=== PATIENT | female | born 1955 | race Caucasian/White ===

== ENCOUNTER → 2016-10-11 | Outpatient (CLI) | payer MEDICARE ==
[~2016-10-11] MED LIST: ALPHAMIN1000 MCG/M IM; ASPIRIN E.C. 8181 MG PO; DECARA PO; DESYREL 100MG100 MG PO; EFFEXOR100 MG PO; FOLIC ACID 11 MG/TA1 PO; LASIX 20MG TABL20 MG PO; LASIX 40MG TABL40 MG PO; NITROSTAT0.4 MG/TAB SL; NORCO 325 MG-51 TAB PO; PLETAL50 MG PO; ROXICODONE 55 MG/TAB PO; VIIBRYD10 MG PO; VITAMIN B11000 MCG/M IM; VITAMIN D1000 IU PO; VITAMIN D32000 IU PO; VITAMINC1000TA PO; XANAX .25M0.25 MG/TA PO
== END ==
LOC: COL.VAS 09:20
DX: I73.9 Peripheral vascular disease, unspecified (principal); I25.10 Atherosclerotic heart disease of native coronary artery without angina pectoris

== ENCOUNTER 2016-11-30 17:43 | Inpatient (IN) | payer MEDICARE ==
[~2016-11-30] VITALS: Ht 177.8 cm; Wt 67.2 kg
[~2016-11-30 17:43] MED LIST changes: -ASPIRIN E.C. 8181 MG PO; -NITROSTAT0.4 MG/TAB SL; -PLETAL50 MG PO
[2016-11-30] MEDS ORDERED: PLETAL50 MG PO (18:52)
[2016-11-30] MEDS ORDERED: NITROSTAT0.4 MG/TAB SL (18:53)
[2016-11-30] MEDS ORDERED: ASPIRIN E.C. 8181 MG PO (18:53)
[2016-11-30 19:29] VITALS: BP 112/57; PULSE 76; TEMP 98.7
[2016-11-30 20:34] LABS: MEAN CELL VOLUME 72 fl (80.0-100.0); MEAN CORPUSCULAR HGB CONC 27 g/dl (33.0-37.0); MEAN PLATELET VOLUME 9.9 fl (7.4-10.4); PLATELET COUNT 173 K/mm3 (130-400); RED BLOOD COUNT 3.27 M/mm3 (4.10-5.30); REDCELL DISTRIBUTION WIDTH-CV 19.1 % (11.5-14.5); WHITE BLOOD COUNT 3.6 K/mm3 (4.8-10.8)
[2016-11-30 20:35] LABS: HEMATOCRIT 23.6 % (37.0-47.0); MEAN CORPUSCULAR HEMOGLOBIN 20 pg (27.0-31.0)
[2016-11-30 20:36] LABS: HEMOGLOBIN 6.4 g/dl (12.5-16.0)
[2016-11-30 20:43] LABS: CALCIUM 9.4 mg/dL (8.4-10.2); MAGNESIUM 2.3 mg/dL (1.6-2.3); PHOSPHOROUS 4.8 mg/dL (2.5-4.5)
[2016-11-30 21:14] LABS: THYROID STIMULATING HORMONE 2.02 uIU/mL (0.465-4.680)
[2016-11-30 23:25] VITALS: BP 119/57; PULSE 64; TEMP 98.3
[2016-11-30 23:49] VITALS: BP 114/58; PULSE 66; TEMP 98
[2016-12-01] VITALS (17 sets, daily range): BP systolic 109–135; BP diastolic 53–73; PULSE 53–82; TEMP 97.5–99
[2016-12-01 10:55] LABS: MEAN CELL VOLUME 74 fl (80.0-100.0); MEAN CORPUSCULAR HGB CONC 29 g/dl (33.0-37.0); MEAN PLATELET VOLUME 9.9 fl (7.4-10.4); PLATELET COUNT 157 K/mm3 (130-400); RED BLOOD COUNT 3.21 M/mm3 (4.10-5.30); REDCELL DISTRIBUTION WIDTH-CV 19.2 % (11.5-14.5); WHITE BLOOD COUNT 2.7 K/mm3 (4.8-10.8)
[2016-12-01 11:00] LABS: HEMATOCRIT 23.7 % (37.0-47.0); HEMOGLOBIN 6.8 g/dl (12.5-16.0); MEAN CORPUSCULAR HEMOGLOBIN 21 pg (27.0-31.0)
[2016-12-01 11:22] LABS: ADJUSTED CALCIUM 9.4 mg/dL (8.4-10.2); ALBUMIN 3.5 gm/dL (3.5-5.0); BILIRUBIN,TOTAL 0.7 mg/dL (0.0-1.0); CREATININE, serum 0.78 mg/dL (0.52-1.25); POTASSIUM 3.4 mmol/L (3.4-5.0)
[2016-12-01 14:57] LABS: ADD PATHOLOGY DIFF REVIEW NO
[2016-12-01 15:50] LABS: BAND 16 % (0-10); NEUTROPHILS 70 % (42.0-75.2); PLATELET ESTIMATE NORMAL (NORMAL)
[2016-12-01 16:04] LABS: HYPOCHROMIA 2+
[2016-12-01 16:05] LABS: ANISOCYTOSIS 1+
[2016-12-01 16:13] LABS: TOTAL CELLS COUNTED 50
[2016-12-02] VITALS (10 sets, daily range): BP systolic 108–139; BP diastolic 50–82; PULSE 55–87; TEMP 98–98.8
[2016-12-02 02:47] LABS: MEAN CELL VOLUME 76 fl (80.0-100.0); MEAN CORPUSCULAR HGB CONC 30 g/dl (33.0-37.0); MEAN PLATELET VOLUME 10.1 fl (7.4-10.4); PLATELET COUNT 143 K/mm3 (130-400); RED BLOOD COUNT 3.76 M/mm3 (4.10-5.30); WHITE BLOOD COUNT 3.6 K/mm3 (4.8-10.8)
[2016-12-02 02:57] LABS: HEMATOCRIT 28.5 % (37.0-47.0); HEMOGLOBIN 8.6 g/dl (12.5-16.0); MEAN CORPUSCULAR HEMOGLOBIN 23 pg (27.0-31.0)
[2016-12-02 10:56] LABS: HEMOGLOBIN 9.3 g/dl (12.5-16.0)
== END 2016-12-02 12:15 | disposition home or self-care (01) | DRG 378 ==
LOC: MEDICAL 17:43
PROVIDERS: Internal Medicine Gastroenterology; Internal Medicine Interventional Cardiology
PROC: 0DJ08ZZ Inspection of Upper Intestinal Tract, Via Natural or Artificial Opening Endoscopic (ICD-10-PCS; principal; 2016-12-01 10:45)
PROC: 0DJD8ZZ Inspection of Lower Intestinal Tract, Via Natural or Artificial Opening Endoscopic (ICD-10-PCS; 2016-12-01 10:45)
DX: K92.1 Melena (principal); D61.818 Other pancytopenia; K74.3 Primary biliary cirrhosis; D50.0 Iron deficiency anemia secondary to blood loss (chronic); K57.30 Diverticulosis of large intestine without perforation or abscess without bleeding; I25.10 Atherosclerotic heart disease of native coronary artery without angina pectoris; I10 Essential (primary) hypertension; Z95.0 Presence of cardiac pacemaker; Z98.84 Bariatric surgery status; F17.210 Nicotine dependence, cigarettes, uncomplicated; I73.9 Peripheral vascular disease, unspecified
CPT/HCPCS: J2250; J3010; J7030; P9016

== ENCOUNTER → 2016-11-30 | Outpatient (CLI) | payer MEDICARE ==
[2016-11-30 12:47] LABS: BASO % 0.3 % (0.0-2.0); EOS # 0.1 (0.0-0.7); EOS % 1.7 % (0-4.0); GRAN # 2.6 (1.4-6.5); GRAN % 73.8 % (42.2-75.2); LYMPH # 0.5 (1.2-3.4); LYMPH % 15.3 % (20.0-51.0); MEAN CELL VOLUME 73 fl (80.0-100.0); MEAN CORPUSCULAR HGB CONC 27 g/dl (33.0-37.0); MEAN PLATELET VOLUME 9.7 fl (7.4-10.4); MONO # 0.3 (0.1-0.6); MONO % 8.6 % (1.7-9.3); PLATELET COUNT 183 K/mm3 (130-400); RED BLOOD COUNT 3.47 M/mm3 (4.10-5.30); REDCELL DISTRIBUTION WIDTH-CV 19.4 % (11.5-14.5); WHITE BLOOD COUNT 3.5 K/mm3 (4.8-10.8)
[2016-11-30 12:59] LABS: CALCIUM 9.6 mg/dL (8.4-10.2); CREATININE, serum 0.87 mg/dL (0.52-1.25); POTASSIUM 3.6 mmol/L (3.4-5.0)
[2016-11-30 13:06] LABS: HEMATOCRIT 25.2 % (37.0-47.0); HEMOGLOBIN 6.9 g/dl (12.5-16.0); MEAN CORPUSCULAR HEMOGLOBIN 20 pg (27.0-31.0)
== END ==
LOC: COL.LAB 12:11
PROVIDERS: Internal Medicine Interventional Cardiology
DX: I70.213 Atherosclerosis of native arteries of extremities with intermittent claudication, bilateral legs (principal); I65.22 Occlusion and stenosis of left carotid artery; R16.0 Hepatomegaly, not elsewhere classified

== ENCOUNTER 2016-12-08 18:56 | Emergency (ER) | payer MEDICARE ==
[~2016-12-08] VITALS: Ht 177.8 cm; Wt 62.3 kg
[~2016-12-08 18:56] MED LIST changes: +ASPIRIN E.C. 8181 MG PO; +NITROSTAT0.4 MG/TAB SL; +PLETAL50 MG PO
[2016-12-08 19:02] VITALS: BP 122/71; TEMP 96.8
[2016-12-08 19:43] LABS: ADD PATHOLOGY DIFF REVIEW NO
[2016-12-08 19:49] LABS: MEAN CELL VOLUME 78 fl (80.0-100.0); MEAN CORPUSCULAR HGB CONC 30 g/dl (33.0-37.0); MEAN PLATELET VOLUME 9.7 fl (7.4-10.4); PLATELET COUNT 157 K/mm3 (130-400); RED BLOOD COUNT 4.54 M/mm3 (4.10-5.30); REDCELL DISTRIBUTION WIDTH-CV 21.3 % (11.5-14.5); RETIC % 1.1 % (0.5-3.52); WHITE BLOOD COUNT 5.1 K/mm3 (4.8-10.8)
[2016-12-08 19:51] LABS: HEMATOCRIT 35.6 % (37.0-47.0); HEMOGLOBIN 10.8 g/dl (12.5-16.0); MEAN CORPUSCULAR HEMOGLOBIN 24 pg (27.0-31.0)
[2016-12-08 20:11] LABS: ALANINE AMINOTRANSFERASE 24 U/L (9-52); ALBUMIN 4.2 gm/dL (3.5-5.0); ALKALINE PHOSPHATASE 84 U/L (50-136); ANION GAP 9 mmol/L (7-16); BILIRUBIN,TOTAL 0.7 mg/dL (0.0-1.0); BLOOD UREA NITROGEN 16 mg/dL (7-17); CALCIUM 9.2 mg/dL (8.4-10.2); CARBON DIOXIDE 28 mmol/L (22-30); CHLORIDE 101 mmol/L (98-107); GLUCOSE 72 mg/dL (74-106); POTASSIUM 3.6 mmol/L (3.4-5.0); SODIUM 138 mmol/L (137-145); TOTAL PROTEIN 7.2 gm/dL (6.4-8.2)
[2016-12-08 20:12] LABS: C-REACTIVE PROTEIN < 0.5 mg/dL (0.0-0.9)
[2016-12-08 20:13] LABS: ANISOCYTOSIS 2+; HYPOCHROMIA 1+; MICROCYTOSIS 1+; NEUTROPHILS 72 % (42.0-75.2); PLATELET ESTIMATE NORMAL (NORMAL); TOTAL CELLS COUNTED 100
[2016-12-08 20:20] LABS: PH 6 (5-8); SQUAMOUS EPITHELIAL 0-2 /hpf; URINE APPEARANCE Clear; URINE BACTERIA None Seen /hpf; URINE BILIRUBIN Negative (NEGATIVE); URINE BLOOD 1+ (NEGATIVE); URINE COLOR Yellow; URINE GLUCOSE Negative (NEGATIVE); URINE KETONE Negative (NEGATIVE); URINE RBC 0-2 /hpf; URINE WBC 0-2 /hpf
[2016-12-08 21:07] VITALS: PULSE 73
== END 2016-12-08 21:07 | disposition home or self-care (01) ==
LOC: COL.ER 18:56
PROVIDERS: Family Medicine
DX: D64.9 Anemia, unspecified (principal); I25.10 Atherosclerotic heart disease of native coronary artery without angina pectoris; Z95.0 Presence of cardiac pacemaker; Z79.82 Long term (current) use of aspirin

== ENCOUNTER → 2016-12-28 | Outpatient (CLI) | payer MEDICARE | LOC: COL.RAD 11:30 | DX: I65.23 Occlusion and stenosis of bilateral carotid arteries (principal) | CPT/HCPCS: Q9967 ==

== ENCOUNTER → 2017-01-05 | Outpatient (CLI) | payer MEDICARE ==
[2017-01-05 14:18] LABS: MEAN CELL VOLUME 84 fl (80.0-100.0); MEAN CORPUSCULAR HGB CONC 31 g/dl (33.0-37.0); MEAN PLATELET VOLUME 9.7 fl (7.4-10.4); PLATELET COUNT 157 K/mm3 (130-400); RED BLOOD COUNT 4.28 M/mm3 (4.10-5.30); REDCELL DISTRIBUTION WIDTH-CV 20.4 % (11.5-14.5)
[2017-01-05 14:20] LABS: HEMATOCRIT 36.1 % (37.0-47.0); HEMOGLOBIN 11.1 g/dl (12.5-16.0); MEAN CORPUSCULAR HEMOGLOBIN 26 pg (27.0-31.0)
[2017-01-05 14:34] LABS: CREATININE, serum 0.74 mg/dL (0.52-1.25); POTASSIUM 3.6 mmol/L (3.4-5.0)
[2017-01-05 14:53] LABS: CALCIUM 9.3 mg/dL (8.4-10.2)
== END ==
LOC: COL.LAB 13:44
PROVIDERS: Internal Medicine Interventional Cardiology
DX: I70.213 Atherosclerosis of native arteries of extremities with intermittent claudication, bilateral legs (principal); I65.22 Occlusion and stenosis of left carotid artery; R16.0 Hepatomegaly, not elsewhere classified

== ENCOUNTER 2018-01-15 00:12 | Observation (INO) | payer MEDICARE ==
[2018-01-15] VITALS (11 sets, daily range): BP systolic 109–135; BP diastolic 56–75; PULSE 54–74; TEMP 97.1–98.2
[~2018-01-15] VITALS: Ht 180.3 cm; Wt 70.9 kg
[~2018-01-15 00:12] MED LIST changes: +EFFEXOR-XR150 MG PO; -EFFEXOR100 MG PO
[2018-01-15 01:11] LABS: MAGNESIUM 2.2 mg/dL (1.6-2.3)
[2018-01-15 01:28] LABS: TROPONIN-I < 0.012 ng/mL (0.000-0.034)
[2018-01-15] MEDS ORDERED: PLAVIX 75MG TAB75 MG PO (02:35)
[2018-01-15] MEDS ORDERED: PRINIVIL20 MG PO (02:37)
[2018-01-15] MEDS ORDERED: PREDNISONE20 MG (02:38)
[2018-01-15] MEDS ORDERED: EFFEXOR-XR150 MG (02:38)
[2018-01-15] MEDS ORDERED: VALIUM 5MG T5 MG/TAB (02:38)
[2018-01-15] MEDS ORDERED: CLEOCIN HC150 MG/CAP (02:38)
[2018-01-15 07:26] LABS: BASO % 0.4 % (0.0-2.0); EOS # 0.1 (0.0-0.7); EOS % 3.2 % (0-4.0); GRAN # 1.2 (1.4-6.5); GRAN % 49.2 % (42.2-75.2); HEMOGLOBIN 10.3 g/dl (12.5-16.0); LYMPH # 0.9 (1.2-3.4); LYMPH % 36.1 % (20.0-51.0); MEAN CELL VOLUME 92 fl (80.0-100.0); MEAN CORPUSCULAR HEMOGLOBIN 29 pg (27.0-31.0); MEAN CORPUSCULAR HGB CONC 32 g/dl (33.0-37.0); MEAN PLATELET VOLUME 10.6 fl (7.4-10.4); MONO # 0.3 (0.1-0.6); MONO % 10.7 % (1.7-9.3); PLATELET COUNT 133 K/mm3 (130-400); RED BLOOD COUNT 3.53 M/mm3 (4.10-5.30); REDCELL DISTRIBUTION WIDTH-CV 13.6 % (11.5-14.5)
[2018-01-15 07:31] LABS: HEMATOCRIT 32.3 % (37.0-47.0)
[2018-01-15 07:36] LABS: ALBUMIN 3.5 gm/dL (3.5-5.0); BILIRUBIN,TOTAL 0.5 mg/dL (0.0-1.0); CALCIUM 8.9 mg/dL (8.4-10.2); CHOLESTEROL RISK RATIO 3.7; CREATININE, serum 0.89 mg/dL (0.52-1.25); POTASSIUM 3.5 mmol/L (3.4-5.0); TOTAL PROTEIN 6.4 gm/dL (6.4-8.2)
[2018-01-16 00:40] VITALS: BP 123/61; PULSE 56; TEMP 98.7
[2018-01-16 07:58] VITALS: BP 123/70; PULSE 77; TEMP 98.7
[2018-01-16] MEDS ORDERED: LIPITOR 80MG80 MG PO (11:31)
[2018-01-16 11:47] VITALS: BP 122/63; PULSE 58; TEMP 98.4
== END 2018-01-16 14:49 | disposition short-term general hospital (02) ==
LOC: MEDICAL 00:12
PROVIDERS: Nurse Practitioner Family
DX: I25.110 Atherosclerotic heart disease of native coronary artery with unstable angina pectoris (principal); I10 Essential (primary) hypertension; I73.9 Peripheral vascular disease, unspecified; F17.210 Nicotine dependence, cigarettes, uncomplicated; D64.9 Anemia, unspecified; F41.9 Anxiety disorder, unspecified; F32.9 Major depressive disorder, single episode, unspecified; I07.1 Rheumatic tricuspid insufficiency; Z95.0 Presence of cardiac pacemaker; Z98.84 Bariatric surgery status; Z90.710 Acquired absence of both cervix and uterus; Z79.82 Long term (current) use of aspirin; Z88.0 Allergy status to penicillin; Z88.1 Allergy status to other antibiotic agents; Z88.8 Allergy status to other drugs, medicaments and biological substances; Z85.828 Personal history of other malignant neoplasm of skin; Z82.49 Family history of ischemic heart disease and other diseases of the circulatory system
CPT/HCPCS: C1769; G0008; G0378; G0379; J1644; J1650; J2250; J3010; J7030; Q9967

== ENCOUNTER 2018-04-18 09:12 | Day surgery (SDC) | payer MEDICARE ==
[2018-04-18] VITALS (9 sets, daily range): BP systolic 125–153; BP diastolic 77–88; PULSE 60–68; TEMP 98
[~2018-04-18] VITALS: Ht 177.8 cm; Wt 70.8 kg
[~2018-04-18 09:12] MED LIST changes: +CLEOCIN HC150 MG/CAP; +EFFEXOR-XR150 MG; +LIPITOR 80MG80 MG PO; +PLAVIX 75MG TAB75 MG PO; +PREDNISONE20 MG; +PRINIVIL20 MG PO; +VALIUM 5MG T5 MG/TAB
[2018-04-18] MEDS ORDERED: LIPITOR 40MG TA40 MG PO (09:26)
[2018-04-18 11:18] LABS: PROTHROMBIN TIME 11.6 SECONDS (9.7-12.8)
[2018-04-18 11:21] LABS: CREATININE, serum 0.8 mg/dL (0.52-1.25); POTASSIUM 3.9 mmol/L (3.4-5.0)
[2018-04-18 11:25] LABS: MEAN CELL VOLUME 86 fl (80.0-100.0); MEAN CORPUSCULAR HGB CONC 30 g/dl (33.0-37.0); MEAN PLATELET VOLUME 10.3 fl (7.4-10.4); PLATELET COUNT 168 K/mm3 (130-400); RED BLOOD COUNT 3.74 M/mm3 (4.10-5.30); REDCELL DISTRIBUTION WIDTH-CV 14.8 % (11.5-14.5)
[2018-04-18 11:26] LABS: HEMOGLOBIN 9.5 g/dl (12.5-16.0); MEAN CORPUSCULAR HEMOGLOBIN 25 pg (27.0-31.0)
== END 2018-04-18 15:00 | disposition home or self-care (01) ==
LOC: COL.CAR 09:12
PROVIDERS: Internal Medicine Interventional Cardiology
DX: Z45.010 Encounter for checking and testing of cardiac pacemaker pulse generator [battery] (principal); I70.213 Atherosclerosis of native arteries of extremities with intermittent claudication, bilateral legs; F17.210 Nicotine dependence, cigarettes, uncomplicated; Z91.041 Radiographic dye allergy status; Z88.0 Allergy status to penicillin; Z88.6 Allergy status to analgesic agent; Z88.5 Allergy status to narcotic agent; Z88.4 Allergy status to anesthetic agent; Z91.018 Allergy to other foods; Z79.82 Long term (current) use of aspirin; Z79.02 Long term (current) use of antithrombotics/antiplatelets; Z79.52 Long term (current) use of systemic steroids; Z96.643 Presence of artificial hip joint, bilateral; Z95.5 Presence of coronary angioplasty implant and graft; Z82.49 Family history of ischemic heart disease and other diseases of the circulatory system; Z83.3 Family history of diabetes mellitus; Z80.9 Family history of malignant neoplasm, unspecified
CPT/HCPCS: J2250; J3010; J3370; J7030; J7050

== ENCOUNTER 2019-05-16 10:03 | Day surgery (SDC) | payer MEDICARE ==
[~2019-05-16] VITALS: Ht 177.8 cm; Wt 57.4 kg
[2019-05-16] VITALS (11 sets, daily range): BP systolic 110–136; BP diastolic 62–77; PULSE 59–64; TEMP 97.3
[~2019-05-16 10:03] MED LIST changes: +LIPITOR 40MG TA40 MG PO
[2019-05-16 10:42] LABS: MEAN CELL VOLUME 85 fl (80.0-100.0); MEAN CORPUSCULAR HEMOGLOBIN 25 pg (27.0-31.0); MEAN CORPUSCULAR HGB CONC 30 g/dl (33.0-37.0); MEAN PLATELET VOLUME 10.4 fl (7.4-10.4); PLATELET COUNT 191 K/mm3 (130-400); RED BLOOD COUNT 3.95 M/mm3 (4.10-5.30); REDCELL DISTRIBUTION WIDTH-CV 14.4 % (11.5-14.5)
[2019-05-16 10:43] LABS: HEMATOCRIT 33.6 % (37.0-47.0)
[2019-05-16 10:47] LABS: PROTHROMBIN TIME 11.4 SECONDS (9.7-12.8)
[2019-05-16] MEDS ORDERED: ASPIRIN E.C. 8181 MG PO (10:47)
[2019-05-16] MEDS ORDERED: PLETAL50 MG PO (10:49)
[2019-05-16 10:50] LABS: PARTIAL THROMBOPLASTIN TIME 29.5 SECONDS (26.0-37.0)
[2019-05-16] MEDS ORDERED: TOPROL XL 25MG25 MG PO (10:50)
[2019-05-16] MEDS ORDERED: PREDNISONE20 MG PO (10:51)
[2019-05-16 10:58] LABS: CALCIUM 9.4 mg/dL (8.4-10.2); CREATININE, serum 0.82 (0.52-1.25); POTASSIUM 4.1 mmol/L (3.4-5.0)
--- NOTE | 2019-05-16 13:14 | NUR ---
SEE MERGE DOCUMENTATION FOR MEDICATION ADMINISTRATION TIMES AND INTRA/POST PROCEDURE SEDATION ASSESSMENTS. PLAN FOR R GROIN ACCESS, BILATERAL GROINS PREPPED.
--- NOTE | 2019-05-16 14:06 | NUR ---
Back from [employer]. Alert and oriented, denies pain and needs at this time. VSS. Right groin site CD&I, soft to palpation with strong pedal pulses noted. Daughter bedside
--- NOTE | 2019-05-16 17:27 | NUR ---
Ambulated in room to use toilet. Right groin site soft to palpation and CD&I. INT discontinued intact.
--- NOTE | 2019-05-16 17:40 | NUR ---
Discharge instructions given. Transferred to private car by j luis
== END 2019-05-16 17:45 | disposition home or self-care (01) ==
LOC: COL.CAR 10:03
PROVIDERS: Internal Medicine Interventional Cardiology
DX: I25.118 Atherosclerotic heart disease of native coronary artery with other forms of angina pectoris (principal); I73.9 Peripheral vascular disease, unspecified; M79.605 Pain in left leg; M79.604 Pain in right leg; F17.210 Nicotine dependence, cigarettes, uncomplicated; Z96.643 Presence of artificial hip joint, bilateral; Z82.49 Family history of ischemic heart disease and other diseases of the circulatory system; Z83.3 Family history of diabetes mellitus; Z88.0 Allergy status to penicillin; Z88.6 Allergy status to analgesic agent; Z88.8 Allergy status to other drugs, medicaments and biological substances; Z91.041 Radiographic dye allergy status; Z91.018 Allergy to other foods
CPT/HCPCS: J1200; J1644; J2250; J3010; J7512; Q9967